=== PATIENT | female | born 1985 | race Caucasian/White ===

== ENCOUNTER 2021-12-15 05:42 | Emergency (ER) | payer BC ==
[~2021-12-15] VITALS: Ht 172.7 cm; Wt 95.5 kg
[2021-12-15 05:45] VITALS: BP 129/73
[2021-12-15] MEDS ORDERED: DOXY100C76 PO (06:21)
--- NOTE | 2021-12-15 06:40 | NUR ---
Pt and mother given and understands d/c instructions. Ambulatory with a steady gait.
== END 2021-12-15 06:40 | disposition home or self-care (01) ==
LOC: ER 05:42
DX: L02.413 Cutaneous abscess of right upper limb (principal); Z88.2 Allergy status to sulfonamides; Z79.2 Long term (current) use of antibiotics
CPT/HCPCS: 99283